=== PATIENT | male | born 1960 | race Two or more races ===

== ENCOUNTER 2024-04-28 06:35 | Day surgery (SDC) | payer MEDICARE, MEDICAID, SELFPAY ==
[2024-04-26 16:49] VITALS: BMI 39.9
--- NOTE | 2024-04-27 07:00 | EKG_ITS ---
[facility] Test Date: 2024-04-27 Pat Name: VENTURA BENNETT Department: Room: - Gender: Male Senior Consulting Manager: SYLVESTER : 1960 Requested By: Joaquin Torres Order Number: [id number] Reading MD: Joaquin Torres Measurements Intervals [place] Rate: 62 P: 33 MO: 195 QRS: -10 QRSD: 109 T: 93 QT: 419 QTc: 427 Interpretive Statements SINUS RHYTHM NONSPECIFIC T-WAVE ABNORMALITY No previous ECG available for comparison [id number]
[2024-04-27 13:11] LABS: Basophils % (Auto) 1 % (0-2.5); Eosinophils # (Auto) 0.1 Thou/mm3 (0.0-0.5); Eosinophils % (Auto) 2 % (0-10); Hematocrit 38.7 % (41.0-53.0); Hemoglobin 12.8 g/dL (13.5-16.0); Immature Granulocytes % (Auto) 1 % (0-0); Immature Granulocytes Auto 0.06 Thou/mm3 (0.00-0.00); Lymphocytes # (Auto) 1.6 Thou/mm3 (1.0-4.8); Lymphocytes % (Auto) 29 % (10-50); Mean Corpuscular HGB Conc 33.1 g/dl (31.0-37.0); Mean Corpuscular Hemoglobin 27.4 pg (25.0-35.0); Mean Corpuscular Volume 83 fL (80-100); Monocytes # (Auto) 0.4 Thou/mm3 (0.0-0.8); Monocytes % (Auto) 8 % (0-12); Neutrophils # (Auto) 3.1 Thou/mm3 (1.8-7.7); Neutrophils % (Auto) 59 % (37-80); Nucleated Red Blood Cell % 0 /100 WBC (0); Platelet Count 290 Thou/mm3 (140-440); Red Blood Count 4.67 Miln/mm3 (4.50-5.90); White Blood Count 5.3 Thou/mm3 (3.8-10.6)
[2024-04-27 13:20] LABS: Anion Gap 7 (7-16); BUN/Creatinine Ratio 10 Ratio (12-20); Blood Urea Nitrogen 12 mg/dL (9-23); Calcium 8.6 mg/dL (8.3-10.6); Carbon Dioxide 28.9 mMol/L (20.0-31.0); Chloride 102 mMol/L (98-107); Creatinine (Component) 1.2 mg/dL (0.6-1.3); Estimated Creatinine Clearance 71.7 mL/min (>60); Glucose 133 mg/dL (74-106); Osmolality,Calculated 277 (275-295); Potassium 3.6 mMol/L (3.4-5.1); Sodium 138 mMol/L (136-145); eGFR > 60 See Note
[2024-04-27 13:22] LABS: Partial Thromboplastin Time 27.6 Seconds (22.0-36.0); Prothrombin Time 11.1 Seconds (9.0-12.2)
[2024-04-27 13:37] LABS: COVID-19 Antigen (In-House) Negative (Negative)
[2024-04-28] VITALS (11 sets, daily range): BP systolic 130–191; BP diastolic 70–96; PULSE 53–72; RESP 11–18; TEMP 36.6–36.8; O2SAT 92–95
[2024-04-28] MEDS: DIAZEPAM 5 MG TABLET PO (07:20)
--- NOTE | 2024-04-28 08:35 | ESOP_ITS ---
Cardiac Cath Procedure Procedure Narrative Date of the procedure 04/28/2024 Title of the procedure 1. Left heart catheterization 2. Left coronary angiogram 3. Right coronary angiogram 4. Left ventriculogram 5. Conscious sedation 6. Radiographic interpretation supervision 7. Ultrasound guidence for Right radial access Indication for the procedure This is a 63-year-old gentleman with hypertension hyperlipidemia diabetes obesity complains of atypical chest pain Cardiolite scan was abnormal Cardiac catheter and coronary angiogram recommended Procedure This is done in the cardiac lab under continuous electrocardiographic monitoring Intermittent blood pressure monitoring right radial arterial access obtained using modified Seldinger technique 6 Armenian radial sheath was placed under ultrasound guidence TIG catheter was used for selective injection of the Left coronary artery TIG cather was used for selective injection of the Right coroanry artery TIG cather was used for LV gram Findings Hemodynamics Left ventricular systolic function is 55% Left ventricular end-diastolic pressure is 16 mmHg Gradient across the aortic valve is 0 mm gradient Coronary anatomy Right Dominance Left main coronary artery is Normal Left anterior descending artery is Luminal regularities distally Diagonal vessel is Normal Left circumflex artery is Normal Obtuse marginal vessel is Luminal regularities This is a nonselective injection of RCA Right coronary artery is No significant coronary lesion Posterior descending artery is Luminal regularities Conclusion No significant coronary lesion Recommendation Continue medical management
== END 2024-04-28 12:00 | disposition home or self-care (01) ==
PROVIDERS: PCP Family Medicine; Referring Provider Internal Medicine; Visit Provider Internal Medicine
PROC: (CPT 93458; principal; 2024-04-28 07:30)
DX: I25.118 Atherosclerotic heart disease of native coronary artery with other forms of angina pectoris (principal); I48.91 Unspecified atrial fibrillation; E11.9 Type 2 diabetes mellitus without complications; E78.5 Hyperlipidemia, unspecified; I10 Essential (primary) hypertension; Z01.810 Encounter for preprocedural cardiovascular examination
CPT/HCPCS: 93458; 36415; 80048; 85025; 85610; 85730; 87811; 93005; 99152; 99153; A4216; A4649; C1769; C1887; C1894; J0171; J0461; J0583; J1643; J2250; J2310; J2371; J3010; J3490; Q9967; A9270; J1644; J2305

== ENCOUNTER → 2024-04-29 | Outpatient (BNVA) | payer MEDICARE, MEDICAID, SELFPAY | END | disposition home or self-care (01) | PROVIDERS: PCP Family Medicine; Referring Provider Family Medicine; Visit Provider Urology | DX: N40.1 Benign prostatic hyperplasia with lower urinary tract symptoms (principal); R97.20 Elevated prostate specific antigen [PSA]; Z80.42 Family history of malignant neoplasm of prostate; I10 Essential (primary) hypertension; R73.03 Prediabetes; Z87.891 Personal history of nicotine dependence; E78.00 Pure hypercholesterolemia, unspecified | CPT/HCPCS: 99212; G0463 ==

== ENCOUNTER → 2024-06-16 | Outpatient (BNVA) | payer MEDICARE, MEDICAID, SELFPAY | END | disposition home or self-care (01) | PROVIDERS: PCP Family Medicine; Referring Provider Family Medicine; Visit Provider Urology | DX: N40.1 Benign prostatic hyperplasia with lower urinary tract symptoms (principal); N13.8 Other obstructive and reflux uropathy; C61 Malignant neoplasm of prostate; Z80.42 Family history of malignant neoplasm of prostate; E11.9 Type 2 diabetes mellitus without complications; I10 Essential (primary) hypertension; E66.9 Obesity, unspecified; Z68.41 Body mass index [BMI] 40.0-44.9, adult; E78.00 Pure hypercholesterolemia, unspecified; Z87.891 Personal history of nicotine dependence | CPT/HCPCS: 81003; 99212; G0463 ==